=== PATIENT | male | born 1980 | race Two or more races ===

== ENCOUNTER 2024-06-26 05:34 | Day surgery (SDC) | payer OTHER ==
[2024-06-20 08:56] LABS: HEMATOCRIT 46.1 % (39.0-48.0); HEMOGLOBIN 16.1 g/dL (13-16.00); MEAN CELL VOLUME 86.4 fL (80.0-100.00); MEAN CORPUSCULAR HEMOGLOBIN 30.1 pg (27.00-32.0); MEAN CORPUSCULAR HGB CONC 34.9 g/dl (32.0-36.0); PLATELET COUNT 310 K/uL (150-450); RED BLOOD COUNT 5.34 M/uL (4.00-6.00); RED CELL DISTRIBUTION WIDTH 13.7 % (11.5-14.5)
[2024-06-20 09:03] LABS: URINE BILIRRUBIN SMALL (NEGATIVE); URINE BLOOD NEGATIVE; URINE GLUCOSE NEGATIVE (NEGATIVE); URINE KETONE NEGATIVE (NEGATIVE); URINE LEUKOCYTE NEGATIVE; URINE NITRATE NEGATIVE; URINE PROTEIN NEGATIVE (NEGATIVE); URINE UROBILINOGEN 0.2 E.U./dl
[2024-06-20 09:04] LABS: URINE APPEARANCE CLEAR; URINE COLOR YELLOW
[2024-06-20 09:05] LABS: URINE BACTERIA 1.2 uL (0.0-1933); URINE EPITHELIAL CELLS 0.4 uL (0.0-38.8); URINE RBC 1.5 uL (0.0-20.8); URINE WBC 1.2 uL (0.0-23.2)
[2024-06-20 09:24] LABS: INR 1.05; PARTIAL THROMBOPLASTIN TIME 34.8 SECONDS (22.0-34.0); PROTHROMBIN TIME 11.4 SECONDS (9.0-11.5)
[2024-06-20 09:53] LABS: CALCIUM 9.7 mg/dL (8.5-10.1); CREATININE SERUM 1.04 mg/dL (0.70-1.30); GFR 77.94; POTASSIUM 4.2 mEq/L (3.5-5.1)
[~2024-06-26 05:34] MED LIST: PRILOSEC OTC20 MG PO; ZETIA10 MG PO
[2024-06-26] MEDS ORDERED: CEFTRIAXONE SODIUM 2,000 MG VIAL ONE (07:15)
[2024-06-26] MEDS ORDERED: ENOXAPARIN SODIUM 40 MG/0.4 ML SYRINGE SUBCUTANEO ONE (07:15)
[2024-06-26] MEDS ORDERED: METRONIDAZOLE/SODIUM CHLORIDE 500 MG/100 ML PIGGYBACK IV ONE (07:15)
[2024-06-26] MEDS ORDERED: LIDOCAINE HCL 1%/EPINEPHRINE 20ML VIAL IJ ONE (07:16)
[2024-06-26] MEDS ORDERED: BUPIVACAINE HCL/Mpf 0.5% 10ML VIAL ONE ×2 (07:16→07:18)
[2024-06-26] MEDS ORDERED: SUGAMMADEX SODIUM 200 MG/2 ML VIAL IV ONE ×2 (09:14→09:15)
[2024-06-26] MEDS ORDERED: MORPHINE SULFATE 4 MG/ML VIAL IV ONE ×4 (09:50→10:50)
[2024-06-26] MEDS ORDERED: NEURONTIN300 MG PO (09:57)
[2024-06-26] MEDS ORDERED: PERCOCET 5-3251 EACH PO (09:57)
[2024-06-26] MEDS ORDERED: POLY119PG PO (09:58)
[2024-06-26] MEDS ORDERED: CELEBREX200MG PO (09:58)
== END 2024-06-26 15:35 | disposition home or self-care (01) ==
LOC: CIR.AMB 05:34
PROVIDERS: ATTEND Surgery
DX: K40.90 Unilateral inguinal hernia, without obstruction or gangrene, not specified as recurrent (principal); K42.0 Umbilical hernia with obstruction, without gangrene
CPT/HCPCS: 49650; 49594; C1781